=== PATIENT | male | born 1960 | race Caucasian/White ===

== ENCOUNTER 2023-12-05 06:00 | Emergency (ER) | payer OTHER ==
[2023-12-05] MEDS: SODIUM CHLORIDE 0.9% 1,000 ML IV STA (06:39)
[2023-12-05] MEDS: ONDANSETRON 4 MG/2 ML VIAL IVP STA (06:40)
[2023-12-05] MEDS: FAMOTIDINE 20 MG/2 ML VIAL IVP STA (06:41)
[2023-12-05 06:55] LABS: BASOPHILS % (AUTO) 0.8 %; EOSINOPHILS # (AUTO) 0.1 10^3/uL (0.0-0.7); EOSINOPHILS % (AUTO) 2.4 %; HCT - HEMATOCRIT 44.8 % (42.0-52.0); HGB - HEMOGLOBIN 14.6 g/dL (14.0-18.0); LYMPHOCYTES # (AUTO) 0.9 10^3/uL (1.5-3.5); LYMPHOCYTES % (AUTO) 17.3 %; MEAN CORPUSCULAR HGB CONC 32.6 g/dL (32.0-36.0); MEAN PLATELET VOLUME 9.9 fL (7.4-11.4); MONOCYTES # (AUTO) 0.4 10^3/uL (0.0-1.0); MONOCYTES % (AUTO) 7.5 %; NEUTROPHILS # (AUTO) 3.5 10^3/uL (1.5-6.6); NEUTROPHILS % (AUTO) 71.8 %; PLT - PLATELET COUNT 213 10^3/uL (130-450); RED BLOOD COUNT 4.87 10^6/uL (4.70-6.10); RED CELL DISTRIBUTION WIDTH 12.1 % (12.0-15.0); WHITE BLOOD COUNT 4.9 x10^3/uL (4.8-10.8)
[2023-12-05] MEDS: KETOROLAC 15 MG/ML VIAL IVP STA (07:01)
--- NOTE | 2023-12-05 07:08 | ED Physician Documentation ---
PD HPI ABD PAIN - Stated complaint Stated Complaint: ABD PX - Chief complaint Chief Complaint: Abd Pain - History obtained from History obtained from: Patient - History of Present Illness Timing - onset: Today (at about 3 am, abrupt onset of flank to left abd pain that has persisted.) Timing - details: Gradual onset, Still present Pain level max: 8 Pain level now: 8 Quality: Cramping, Pain Location: LLQ Radiation: Left flank Improved by: No: Laying still Worsened by: No: Moving, Breathing, Palpation Associated symptoms: Nausea. No: Fever, Diarrhea, Dysuria Similar symptoms before: Diagnosis (kidney stone about 20 years ago.) Recently seen: Not recently seen Review of Systems Constitutional: denies: Fever, Chills Cardiac: denies: Chest pain / pressure Respiratory: denies: Dyspnea GI: reports: Nausea. denies: Vomiting, Diarrhea : denies: Dysuria Skin: denies: Rash PD PAST MEDICAL HISTORY - Past Medical History Past Medical History: Yes Cardiovascular: Hypertension : Kidney stones - Past Surgical History Past Surgical History: Yes General: Other - Present Medications Home Medications: Ambulatory Orders Medication Instructions Recorded Confirmed Naproxen 500 mg PO TID #20 tab 12/05/23 Ondansetron Odt [Zofran] 4 mg TL Q6H PRN #10 tablet 12/05/23 Oxycodone HCl/Acetaminophen 1 each PO Q6H PRN #15 tablet 12/05/23 [Percocet 7.5-325 mg Tablet] Tamsulosin [Flomax] 0.4 mg PO DAILY #5 cap 12/05/23 - Allergies Allergies/Adverse Reactions: Allergies Allergy/AdvReac Type Severity Reaction Status Date / Time No Known Drug Allergies Allergy Verified 12/05/23 06:14 - Social History Does the pt smoke?: No Smoking Status: Never smoker Does the pt drink ETOH?: Yes ETOH Use: Wine Does the pt have substance abuse?: No - Immunizations Immunizations are current?: Yes - POLST Patient has POLST: No PD ED PE NORMAL - Vitals Vital signs reviewed: Yes - General General: Alert and oriented X 3, Well developed/nourished, Other (appears very uncomfortable. ) - Cardiac Cardiac: RRR, No murmur - Respiratory Respiratory: Clear bilaterally - Abdomen Abdomen: Normal bowel sounds, Soft, Non distended, Other (mildly tender only, LLQ without percussion tenderness nor guarding. ) - Back Back: Other (some left flank tender to percussion. ) - Derm Derm: Normal color, Warm and dry - Extremities Extremities: Normal ROM s pain - Neuro Neuro: Alert and oriented X 3, No motor deficit, Normal speech Results - Vitals Vitals: Vital Signs - 24 hr 12/05/23 12/05/23 12/05/23 06:10 07:32 08:30 Temperature 36.9 C Heart Rate 69 70 Respiratory 20 18 Rate Blood Pressure 147/89 H 134/72 H O2 Saturation 98 95 88 L If not protocol : Oxygen Flow, liters/minute 12/05/23 12/05/23 09:53 10:04 Temperature 36.3 C L Heart Rate 77 74 Respiratory 18 18 Rate Blood Pressure 136/82 H 140/86 H O2 Saturation 95 94 If not protocol 2 : Oxygen Flow, liters/minute Oxygen O2 Source Nasal cannula - Labs Labs: Laboratory Tests 12/05/23 12/05/23 12/05/23 06:51 06:51 06:55 WBC 4.9 RBC 4.87 Hgb 14.6 Hct 44.8 MCV 92.0 MCH 30.0 MCHC 32.6 RDW 12.1 Plt Count 213 MPV 9.9 Neut # (Auto) 3.5 Lymph # (Auto) 0.9 L [place] # (Auto) 0.4 Eos # (Auto) 0.1 Baso # (Auto) 0.0 Absolute Nucleated RBC 0.00 Nucleated RBC % 0.0 Sodium 140 Potassium 4.4 Chloride 108 Carbon Dioxide 25 Anion Gap 7.0 BUN 14 Creatinine 1.3 Estimated GFR (MDRD) 56 L Glucose 147 H Calcium 9.5 Total Bilirubin 0.5 AST 15 ALT 23 Alkaline Phosphatase 45 Total Protein 6.7 Albumin 4.3 Globulin 2.4 Albumin/Globulin Ratio 1.8 Lipase 14 Urine Color YELLOW Urine Clarity CLEAR Urine pH 5.0 Ur Specific Ray >=1.030 H Urine Protein NEGATIVE Urine Glucose (UA) NEGATIVE Urine Ketones NEGATIVE Urine Occult Blood SMALL H Urine Nitrite NEGATIVE Urine Bilirubin NEGATIVE Urine Urobilinogen 0.2 (NORMAL) Ur Leukocyte Esterase NEGATIVE Urine RBC 0-5 Urine WBC 0-3 Ur Squamous Epith Cells NONE SEEN Urine Bacteria Rare Urine Mucus Few Strands Ur Microscopic Review INDICATED Urine Culture Comments NOT INDICATED - Rads (name of study) abd/pelvic CT Relevant Findings:: Prelim report reviewed, EMP independent interpretation of test (5 mm stone proximal ureter left side. ) PD Medical Decision Making - ED course Complexity details: reviewed results, re-evaluated patient (had gotten Toradol and Zofran with less nausea but minimal change in pain. Gave Dilaudid 1 mg IV with considerable improvement. ), considered differential (Patient with abrupt onset left flank to lower abdomen pain overnight. Persisting pain. Associated with nausea. No chest pain. Remote history of kidney stone 20 years ago. No recent problems. Kidney stone highly likely. Can get CT scan to evaluate for diverticulitis, aortic problems, other.), d/w patient Departure - Departure Disposition: 01 Home, Self Care Clinical Impression: Left sided abdominal pain, Ureterolithiasis Condition: Stable Record reviewed to determine appropriate education?: Yes Instructions: ED Stone Renal W Colic Follow-Up: Shubham Barr MD [Provider Admit Priv/Credential] - Prescriptions: Tamsulosin [Flomax] 0.4 mg PO DAILY #5 cap Naproxen 500 mg PO TID #20 tab Oxycodone HCl/Acetaminophen [Percocet 7.5-325 mg Tablet] 1 each PO Q6H PRN #15 tablet PRN Reason: Pain Ondansetron Odt [Zofran] 4 mg TL Q6H PRN #10 tablet PRN Reason: Nausea / Vomiting Comments: You have a 5 to 6 mm stone in the left ureter which appears to be the cause of your pain. There is only mild swelling of the kidney on that side so it is not causing much back pressuring at this time. It likely was more earlier. The radiology report confirms this and did not show any other notable other abnormalities. They describe a small cyst in your liver which is fairly common. They noted some inflammation around the end of the esophagus that might be consistent with some reflux. If you do not currently take an acid reducing medicine then might consider Zantac or Pepcid type medicine daily. So the current pain is coming from us kidney stone trying to be passed. We ty pically will treat with a combination of some anti-inflammatories and antispasmodic for the ureter (naproxen and tamsulosin). To that add Tylenol 500 to 650 mg every 4-6 hours if needed or oxycodone/acetaminophen if needed for worse pain. I also prescribed ondansetron if needed for nausea. Adequate hydration. Follow-up with urology if this has not resolved over the next several days. Return to the ER if worse symptoms despite the medication. I sent your prescriptions to [facility] in [place]. I am prescribing a short course of narcotic pain medication for you. These are potentially dangerous and addictive medications that should be used carefully. These medications may constipate you. Take an [id number] stool softener such as docusate twice daily with plenty of water while taking these medications. If you go 24 hours without a bowel movement, take [id number] MiraLAX, per package instructions. Do not drink or drive while taking these medications. If you received narcotic or sedating medications while in the emergency department do not drive for 24 hours. Store this medication in a safe, secure place and out of reach of children. It is a violation of federal law to give or sell this medication to another person or to use in a manner other than prescribed. The ED will not refill narcotic prescriptions, including prescriptions lost or stolen. You can dispose of unwanted medications at the [facility]'s office or at several pharmacies such as [facility] Forms: PCP List, Activity restrictions Discharge Date/Time: 12/05/23 10:09
[2023-12-05 07:11] LABS: BILIRUBIN,URINE NEGATIVE (NEGATIVE); GLUCOSE, URINE (UA) NEGATIVE (NEGATIVE); KETONES,URINE (UA) NEGATIVE (NEGATIVE); LEUKOCYTE ESTERASE, URINE NEGATIVE (NEGATIVE); NITRITE,URINE NEGATIVE (NEGATIVE); OCCULT BLOOD,URINE SMALL (NEGATIVE); PROTEIN,URINE NEGATIVE (NEGATIVE); UROBILINOGEN,URINE 0.2 (NORMAL) E.U./dL (NORMAL)
[2023-12-05 07:12] LABS: CLARITY,URINE CLEAR (CLEAR)
[2023-12-05 07:23] LABS: BACTERIA,URINE Rare /HPF (None Seen); MUCUS,URINE Few Strands; RBC,URINE 0-5 /HPF (0-5); SQUAMOUS EPITHELIAL CELL,UR NONE SEEN (<= Few); WBC,URINE 0-3 /HPF (0-3)
[2023-12-05 07:24] LABS: ALBUMIN 4.3 g/dL (3.2-5.5); ALBUMIN/GLOBULIN RATIO 1.8 (1.0-2.2); BILIRUBIN,TOTAL 0.5 mg/dL (0.2-1.0); CALCIUM 9.5 mg/dL (8.5-10.3); CREATININE 1.3 mg/dL (0.6-1.3); POTASSIUM 4.4 mmol/L (3.5-4.5); TOTAL PROTEIN 6.7 g/dL (6.4-8.9)
[2023-12-05] MEDS: HYDROmorphone 1 MG/ML CARPUJECT IVP STA (07:30)
[2023-12-05] MEDS ORDERED: iohexoL-300 100 ML VIAL ONE (07:51)
--- NOTE | 2023-12-05 08:49 | CT Report ---
PROCEDURE: Abdomen/Pelvis W INDICATIONS: left abd/flank pain onset overnight CONTRAST: 100ml omni 300 TECHNIQUE: After the administration of intravenous contrast, a CT scan of the abdomen and pelvis was performed. Images were recorded and evaluated at appropriate window settings. Reformats: coronal and sagittal. F or radiation dose reduction, the following was used: automated exposure control, adjustment of mA and /or kV according to patient size. COMPARISON: None. FINDINGS: Image quality: Diagnostic. Lower chest: Right lower lobe infiltrate/atelectasis. Mild concentric esophageal wall thickening. Liver: No solid mass. Moderate hepatic steatosis. There is a 1.2 cm indeterminate hypodense subcapsul ar nodule in the posterior segment of the right hepatic lobe, most likely a cyst. Gallbladder and biliary tree: Normal gallbladder. No biliary dilation. Spleen: No splenomegaly. Pancreas: No pancreatic ductal dilation. Adrenals: No adrenal nodule. Kidneys and ureters: There is a 6 mm stone proximal left ureter just beyond the ureteropelvic junctio n. There is mild left hydronephrosis and perinephric stranding. There is a large stone in the right r enal pelvis measuring 17 x 18 mm. No right hydronephrosis. No renal cystic lesion which requires foll ow up. No solid mass. Stomach, bowel and peritoneum: No bowel distension. No pathologic free fluid. Lymph nodes: No central or retroperitoneal adenopathy. Vessels: No infrarenal aortic aneurysm. PELVIS Reproductive organs: Prostate is enlarged. Bladder: No abnormal wall thickening, accounting for underdistention. Pelvic lymph nodes: No pelvic adenopathy by size criteria. Bones: No aggressive osseous abnormality. Other: Small fat-containing right inguinal hernia. IMPRESSION: 1. A 6 mm obstructive stone in the proximal left ureter causing mild hydronephrosis. 2. Enlarged nonobstructive calculus in the right kidney. No right hydronephrosis. 3. Hepatic steatosis. 4. A 1.2 cm intermediate hepatic hypodensity in the right hepatic lobe. Statistically, it is most lik gregory a cyst. 5. Mild concentric thickening of the distal esophagus, probably secondary to gastroesophageal reflux or esophagitis. 6. Enlarged prostate. Reviewed by: Dev Matamoros MD on 12/05/2023 8:48 AM PST Approved by: Dev Matamoros MD on 12/05/2023 8:48 AM PST Station ID: [id number]
[2023-12-05] MEDS: iohexoL-300 100 ML VIAL IVP ONE (08:56)
[2023-12-05] MEDS: TAMSULOSIN 0.4 MG CAPSULE PO STA (09:25)
[2023-12-05] MEDS: HYDROmorphone 0.5 MG/0.5 ML SYRINGE IVP STA (09:25)
[2023-12-05] MEDS: LIDOCAINE-MPF 2% 7 ML in SODIUM CHLORIDE 0.9% 50 ML IV STA (09:35)
[2023-12-05 10:09] VITALS: BP 140/86; O2SAT 94
== END 2023-12-05 10:09 | disposition home or self-care (01) ==
LOC: ED 06:00
DX: N13.2 Hydronephrosis with renal and ureteral calculous obstruction (principal); I10 Essential (primary) hypertension
CPT/HCPCS: 36415; 74177; 80053; 81001; 83690; 85025; 96365; 96375; 96376; 99284; 99285; A9270; J1170; J7040; Q9967; 81003; 87086

== ENCOUNTER 2024-01-12 10:54 | Day surgery (SDC) | payer OTHER ==
[2024-01-12] MEDS ORDERED: ceFAZolin 2 GM VIAL ONE (10:58)
[2024-01-12] MEDS ORDERED: LIDOCAINE 2% URO-JET 5 ML SYRINGE UR ONE (11:04)
[2024-01-12] MEDS ORDERED: iohexoL-240 10 ML VIAL IVP ONE (11:21)
[2024-01-12] MEDS: LACTATED RINGERS 1,000 ML IV ONE ×2 (11:21→12:15)
[2024-01-12] MEDS ORDERED: MIDAZOLAM 2 MG/2 ML VIAL ONE (11:31)
[2024-01-12] MEDS ORDERED: fentaNYL 100 MCG/2 ML VIAL ONE (11:32)
--- NOTE | 2024-01-12 11:35 | ANESTHESIA ---
Pre-Anesthesia VS, & Labs - Diagnosis LEFT URETERAL STONE - Procedure LEFT LITHOTRIPSY AND CYSTO Vital Signs: Temp Pulse Resp BP Pulse Ox O2 Flow Rate 36.6 C 70 13 125/83 H 98 01/12/24 11:22 01/12/24 11:22 01/12/24 11:22 01/12/24 11:22 01/12/24 11:22 Height: 5 ft 9 in Weight (kg): 97.6 kg Body Mass Index: 31.7 BMI Classification: Obese - NPO Last Fluid Intake: 1000 Last Food Intake: >8HR Home Medications and Allergies Home Medications: Ambulatory Orders No Known Home Medications 01/07/24 No Known Home Medications 01/07/24 Allergies/Adverse Reactions: Allergies Allergy/AdvReac Type Severity Reaction Status Date / Time No Known Drug Allergies Allergy Verified 01/12/24 11:27 Anes History & Medical History - Anesthetic History Anesthesia Complications: reports: No previous complications Family history of Anesthesia Complications: Denies - Medical History Cardiovascular: reports: None Pulmonary: reports: None Gastrointestinal: reports: None Urinary: reports: Kidney stones Musculoskeletal: reports: None Endocrine/Autoimmune: reports: None Skin: reports: None Smoking Status: Never smoker Psychosocial: reports: No issues indicated - Surgical History General: reports: Colonoscopy, Other Eyes Ears Nose Throat (EENT): reports: Cataracts Urologic: reports: Ureterolithotomy (stones) Results - EKG Results EKG Comparison: Reviewed EKG Exam General: Alert Dental: WNL, Partials Upper (REPORTS NO LOOSE TEETH) Mouth Openin Fingerbreadth Mallampati classification: II Thyromental Distance: 4-6 cm Plan Anesthesia Type: General Consent for Procedure(s) Verified and Reviewed: Yes Code Status: Attempt Resuscitation ASA classification: 2-Mild systemic disease Is this case an emergency?: No
[2024-01-12] MEDS ORDERED: ONDANSETRON 4 MG/2 ML VIAL IVP PRN (11:37)
[2024-01-12] MEDS ORDERED: MORPHINE 2 MG/ML CARPUJECT IVP PRN (11:37)
[2024-01-12] MEDS ORDERED: HYDROmorphone 0.5 MG/0.5 ML SYRINGE IVP PRN (11:37)
[2024-01-12] MEDS ORDERED: ePHEDrine 50 MG/ML VIAL IVP PRN (11:37)
[2024-01-12] MEDS ORDERED: METOCLOPRAMIDE 10 MG/2 ML VIAL IVP PRN (11:37)
[2024-01-12] MEDS ORDERED: NALOXONE 0.4 MG/ML VIAL IVP PRN (11:37)
[2024-01-12] MEDS ORDERED: fentaNYL 100 MCG/2 ML VIAL IVP PRN (11:37)
[2024-01-12] MEDS ORDERED: ATROPINE ABBOJECT 1 MG/10 ML SYRINGE IVP PRN (11:37)
[2024-01-12] MEDS ORDERED: DEXAMETHASONE 4 MG/ML VIAL ONE (11:56)
[2024-01-12] MEDS ORDERED: ONDANSETRON 4 MG/2 ML VIAL ONE (11:56)
[2024-01-12] MEDS: LIDOCAINE 2% URO-JET 5 ML SYRINGE UR ONE (12:00)
[2024-01-12] MEDS: iohexoL-240 10 ML VIAL IVP ONE (12:00)
[2024-01-12] MEDS ORDERED: LACTATED RINGERS 1,000 ML IV SCH (12:00)
[2024-01-12] MEDS ORDERED: KETOROLAC 30 MG/ML VIAL ONE (12:02)
--- NOTE | 2024-01-12 12:21 | Discharge Plan ---
Discharge Plan Problem Reviewed?: Yes Disposition: Home, Self Care Condition: Good Prescriptions: Docusate Sodium 100Mg Capsule [Colace 100Mg Capsule] 100 mg PO DAILY #7 cap HYDROcod/ACETAM 5/325 [[place]hu[place] 5/325] 1 tab PO Q4H PRN #6 tablet PRN Reason: Pain Diet: Regular Activity Restrictions: No Restrictions Shower Restrictions: No Driving Restrictions: Yes (no driving when taking pain medications) Instruction Topics: Stents Ureteral Additional Instructions or Follow Up instructions: Please remove ureteral stent as instructed on January 14 in the morning. You will be contacted for follow-up with Dr. Barr in a few weeks to discuss your other kidney stone No Smoking: If you smoke, Please STOP! Call for help. Follow-up with: Shubham Barr MD [Provider Admit Priv/Credential] -
--- NOTE | 2024-01-12 12:24 | OPERATIVE REPORT ---
Operative Report - General Procedure Date: 01/12/24 Planned Procedure: Cystoscopy, left ureteroscopy, laser lithotripsy, stent Pre-Op Diagnosis: left ureteral stone, right renal stone Procedure Performed: Cystoscopy, left diagnostic ureteroscopy, stent Post Op Diagnosis: right renal stone - Procedure Note Primary Surgeon: Momo Anesthesia Provider: CONNIE Bunn Anesthesia Technique: General LMA Findings: No stone seen on the left side. Large radiopaque upper pole right stone Complications: No left ureteral stone - Other Other Information/Narrative: After informed consent was obtained the patient was brought to the OR and laid in the supine position. The patient was anesthetized per anesthesia protocols and prepped and draped in usual sterile fashion in the dorsolithotomy position. A formal timeout was performed reconfirming the patient, procedure and laterality. A 22 Australian cystoscope was advanced easily into urinary bladder. Bladder inspected and full and there were no masses, lesions or other concerns. [employer] imaging showed no radiopacities on the left side. On the right side there was a 15 mm upper pole radiopaque stone consistent with prior imaging. A sensor wire was placed easily up in the left kidney. A flexible ureteroscope was advanced over the wire up into the kidney. The kidney was inspected and full and there were no stones or other concerns. The ureter was then cleared under direct visualization and again no stones were seen. There were some slight areas of narrowing throughout the ureter but there were no stones seen. A sensor wire was replaced back up in the kidney and then on the left side a 6 [place] 26 cm stent was placed with good curling noted in the kidney and good curling noted in the bladder. The bladder was emptied Uro-Jet was placed. There was a string left on the stent and this was taped to his penis. The plan will be for the stent to remain in place for 3 days. He will follow-up in a few weeks time to discuss his right-sided kidney stone. Patient tolerated procedure well was brought to PACU without further incident.
[2024-01-12 12:45] VITALS: O2SAT 96
--- NOTE | 2024-01-12 12:55 | ANESTHESIA POST OP EVALUATION ---
Anesthesia Post Eval - Post Anesthesia Eval Vitals: Last Vital Signs Temp 36.6 C 01/12/24 12:45 Pulse 68 01/12/24 12:45 Resp 14 01/12/24 12:45 BP 109/80 01/12/24 12:45 Pulse Ox 96 01/12/24 12:45 O2 Flow Rate CV Function Including HR & BP: Stable Pain Control: Satisfactory Nausea & Vomiting: Negative Mental Status: Baseline Respiratory Status: Airway Patent Hydration Status: Satisfactory Anesthesia Complications: None
[2024-01-12 13:06] VITALS: BP 114/82
[2024-01-12] MEDS ORDERED: HYDROcod/ACETAM 5/325 MG TABLET ONE (13:08)
[2024-01-12] MEDS: HYDROcod/ACETAM 5/325 MG TABLET PO PRN (13:10)
--- NOTE | 2024-01-13 08:35 | XRAY Report ---
PROCEDURE: OR C-Arm Procedure INDICATIONS: CYSTO, LEFT FLEX, URETEROSCOPY, LASER, STENT PLACE FLUORO TIME: 0.1 min TECHNIQUE: 3 C-arm fluoroscopy images submitted. COMPARISON: CT abdomen and pelvis, 12/05/2015. FINDINGS: 3 fluoroscopy images demonstrate cannulization of the left ureter and placement of left ure teral stent. IMPRESSION: Fluoroscopy support for cystoscopy, left ureteral cannulization, ureteroscopy, laser treatment and st ent placement. Reviewed by: Dev Matamoros MD on 01/13/2024 8:34 AM PDT Approved by: Dev Matamoros MD on 01/13/2024 8:34 AM PDT Station ID: [id number]
== END 2024-01-12 10:55 | disposition home or self-care (01) ==
LOC: SDS 10:54
PROVIDERS: ATTEND Urology
DX: N20.0 Calculus of kidney (principal); E66.9 Obesity, unspecified; Z68.31 Body mass index [BMI] 31.0-31.9, adult
CPT/HCPCS: 52356; A9270; C1758; C2617; J7120; Q9966

== ENCOUNTER 2024-03-22 06:17 | Day surgery (SDC) | payer OTHER ==
[2024-03-22] MEDS ORDERED: ceFAZolin 2 GM VIAL ONE (06:19)
[2024-03-22] MEDS: LACTATED RINGERS 1,000 ML IV ONE ×2 (06:49→08:30)
[2024-03-22] MEDS ORDERED: ONDANSETRON 4 MG/2 ML VIAL IVP PRN ×2 (06:52→08:48)
[2024-03-22] MEDS ORDERED: METOCLOPRAMIDE 10 MG/2 ML VIAL IVP PRN (06:52)
[2024-03-22] MEDS ORDERED: MORPHINE 2 MG/ML CARPUJECT IVP PRN (06:52)
[2024-03-22] MEDS ORDERED: ATROPINE ABBOJECT 1 MG/10 ML SYRINGE IVP PRN (06:52)
[2024-03-22] MEDS ORDERED: NALOXONE 0.4 MG/ML VIAL IVP PRN (06:52)
[2024-03-22] MEDS ORDERED: fentaNYL 100 MCG/2 ML VIAL IVP PRN (06:52)
[2024-03-22] MEDS ORDERED: ePHEDrine 50 MG/ML VIAL IVP PRN (06:52)
--- NOTE | 2024-03-22 06:52 | ANESTHESIA ---
Pre-Anesthesia VS, & Labs - Diagnosis nephrolithisis - Procedure ESWL @R Vital Signs: Temp Pulse Resp BP Pulse Ox O2 Flow Rate 36.4 C L 79 16 115/85 H 94 03/22/24 06:37 03/22/24 06:37 03/22/24 06:37 03/22/24 06:37 03/22/24 06:37 Height: 5 ft 9 in Weight (kg): 98.3 kg Body Mass Index: 32.0 BMI Classification: Obese - NPO >8 hours - Lab Results Lab results reviewed: Yes Home Medications and Allergies Home Medications: Ambulatory Orders No Known Home Medications 03/10/24 No Known Home Medications 03/10/24 Allergies/Adverse Reactions: Allergies Allergy/AdvReac Type Severity Reaction Status Date / Time No Known Drug Allergies Allergy Verified 01/12/24 11:27 Anes History & Medical History - Anesthetic History Anesthesia Complications: reports: No previous complications Family history of Anesthesia Complications: Denies Family history of Malignant Hyperthermia: Denies - Medical History Cardiovascular: reports: None Pulmonary: reports: None Gastrointestinal: reports: None Urinary: reports: Kidney stones Musculoskeletal: reports: None Endocrine/Autoimmune: reports: None Skin: reports: None Smoking Status: Never smoker - Surgical History General: reports: Colonoscopy, Other Eyes Ears Nose Throat (EENT): reports: Cataracts Urologic: reports: Ureterolithotomy (stones) Exam General: Alert, Oriented x3, Cooperative Dental: Partials Upper Mouth Openin Fingerbreadth Neck Mobility: Normal Mallampati classification: II Thyromental Distance: 4-6 cm Respiratory: Lungs clear, Normal breath sounds, No respiratory distress Cardiovascular: Regular rate Neurological: Normal speech Mental/Cognitive Status: Alert/Oriented X3, Normal for patient Cognitive Status: Within normal limits Plan Anesthesia Type: General Consent for Procedure(s) Verified and Reviewed: Yes Code Status: Attempt Resuscitation ASA classification: 2-Mild systemic disease Is this case an emergency?: No
[2024-03-22] MEDS ORDERED: LACTATED RINGERS 1,000 ML IV SCH (07:00)
[2024-03-22] MEDS ORDERED: MIDAZOLAM 2 MG/2 ML VIAL ONE (07:05)
[2024-03-22] MEDS ORDERED: fentaNYL 100 MCG/2 ML VIAL ONE (07:06)
[2024-03-22] MEDS ORDERED: LIDOCAINE-PF 2% 10 ML AMP SUBQ ONE (07:06)
[2024-03-22] MEDS ORDERED: PROPOFOL 200 MG/20 ML VIAL IVP ONE (07:06)
[2024-03-22] MEDS ORDERED: ONDANSETRON 4 MG/2 ML VIAL ONE (07:42)
[2024-03-22] MEDS ORDERED: DEXAMETHASONE 4 MG/ML VIAL ONE (07:42)
--- NOTE | 2024-03-22 08:56 | Discharge Plan ---
Discharge Plan Problem Reviewed?: Yes Disposition: Home, Self Care Condition: Good Prescriptions: Docusate Sodium 100Mg Capsule [Colace 100Mg Capsule] 100 mg PO DAILY #7 cap oxyCODONE [Roxicodone] 5 mg PO Q4H PRN #10 tablet PRN Reason: Pain Diet: Regular Activity Restrictions: No Restrictions Shower Restrictions: No Driving Restrictions: No Instruction Topics: Lithotripsy Shock Wave Additional Instructions or Follow Up instructions: You have a follow-up on April [address] Barr at 1 PM. Please go to [facility] imaging center earlier that morning or a few days beforehand for an abdominal x-ray. This has been ordered for you No Smoking: If you smoke, Please STOP! Call for help.
--- NOTE | 2024-03-22 09:00 | OPERATIVE REPORT ---
Operative Report - General Procedure Date: 03/22/24 Planned Procedure: Right Extracorporeal shock wave lithotripsy Pre-Op Diagnosis: Right kidney stone Procedure Performed: Right Extracorporeal shock wave lithotripsy Post Op Diagnosis: same - Procedure Note Primary Surgeon: Momo Anesthesia Provider: CONNIE Bunn Anesthesia Technique: General LMA Pathology: none Indications: Right upper pole 16mm stone Findings: Right upper pole 16mm stone with moderate dissolution Complications: none - Other Other Information/Narrative: After informed consent was obtained the patient was brought to the OR and laid in the supine position. The patient was anesthetized per anesthesia protocols and then prepped and draped in usual sterile fashion. A formal timeout was performed reconfirming the patient, procedure and laterality. An extracorporeal shockwave lithotripsy Dornier lithotripter device was placed with the pad against the patient's right flank. Gas Desulfurizer imaging was performed to isolate and identify the stone. He had a 16 mm right sided upper pole radiopaque stone. The lithotripter was then started at rate of 1 Hz. A total of 2500 shocks were performed. Periodic Spot imaging was used to reconfirm positioning and to monitor this stone. By the end of the case the stone had moderate dissolution. We could clearly see that it had widened and lightened quite significantly. This concluded the procedure and the patient was reversed from anesthesia and brought to the PACU without further incident. He will follow-up in 4 weeks time with an x-ray.
[2024-03-22] MEDS ORDERED: HYDROmorphone 1 MG/ML CARPUJECT ONE (09:09)
[2024-03-22] MEDS: HYDROmorphone 0.5 MG/0.5 ML SYRINGE IVP PRN (09:14)
[2024-03-22] MEDS ORDERED: HYDROcod/ACETAM 5/325 MG TABLET ONE (09:54)
[2024-03-22] MEDS: HYDROcod/ACETAM 5/325 MG TABLET PO PRN (09:55)
--- NOTE | 2024-03-22 10:16 | ANESTHESIA POST OP EVALUATION ---
Anesthesia Post Eval - Post Anesthesia Eval Vitals: Last Vital Signs Temp 36.6 C 03/22/24 09:50 Pulse 75 03/22/24 09:50 Resp 16 03/22/24 09:50 BP 136/67 H 03/22/24 09:50 Pulse Ox 98 03/22/24 09:50 O2 Flow Rate CV Function Including HR & BP: Stable Pain Control: Satisfactory Nausea & Vomiting: Negative Mental Status: Baseline Respiratory Status: Airway Patent Hydration Status: Satisfactory Anesthesia Complications: None
[2024-03-22 10:25] VITALS: BP 118/60; O2SAT 99
== END 2024-03-22 06:18 | disposition home or self-care (01) ==
LOC: SDS 06:17
PROVIDERS: ATTEND Urology
DX: N20.0 Calculus of kidney (principal); E66.9 Obesity, unspecified; Z68.32 Body mass index [BMI] 32.0-32.9, adult
CPT/HCPCS: 50590; A9270; J1170; J7120

== ENCOUNTER 2024-03-26 00:50 | Day surgery (SDC) | payer OTHER ==
--- NOTE | 2024-03-26 01:37 | ED Physician Documentation ---
History of Present Illness - Stated complaint Stated Complaint: ABD PX - Chief complaint Chief Complaint: Abd Pain - History obtained from History obtained from: Patient - Additonal information Additional information: 63yM presents s/p lithotripsy for kidney stones on friday (5 days ago) with R back pain that is sharp, severe, c/w prior kidney stones. also with nausea. denies fever Review of Systems Constitutional: denies: Fever, Chills Cardiac: denies: Chest pain / pressure Respiratory: denies: Dyspnea GI: reports: Nausea. denies: Abdominal Pain, Vomiting : denies: Dysuria, Frequency Musculoskeletal: reports: Back pain PD PAST MEDICAL HISTORY - Past Medical History Cardiovascular: None Respiratory: None Endocrine/Autoimmune: None GI: None : Kidney stones HEENT: Chronic vision loss Psych: Depression Musculoskeletal: None Derm: None - Past Surgical History Past Surgical History: Yes General: Colonoscopy, Other HEENT: Cataracts - Present Medications Home Medications: Ambulatory Orders Medication Instructions Recorded Confirmed Docusate Sodium 100Mg Capsule 100 mg PO DAILY #7 cap 03/22/24 [Colace 100Mg Capsule] oxyCODONE [Roxicodone] 5 mg PO Q4H PRN #10 tablet 03/22/24 - Allergies Allergies/Adverse Reactions: Allergies Allergy/AdvReac Type Severity Reaction Status Date / Time No Known Drug Allergies Allergy Verified 03/26/24 01:20 - Social History Does the pt smoke?: No Smoking Status: Never smoker Does the pt drink ETOH?: Yes Does the pt have substance abuse?: No - Immunizations Immunizations are current?: Yes - POLST Patient has POLST: No PD ED PE NORMAL - Vitals Vital signs reviewed: Yes - General General: Alert and oriented X 3, Well developed/nourished, Other (uncomfortable appearing) - HEENT HEENT: Atraumatic, PERRL, EOMI - Neck Neck: Supple, no meningeal sign - Cardiac Cardiac: RRR - Respiratory Respiratory: No respiratory distress, Clear bilaterally - Abdomen Abdomen: Non tender, Non distended - Back Back: Other (R CVA ttp) Results - Vitals Vitals: Vital Signs - 24 hr 03/26/24 03/26/24 01:20 02:54 Temperature 35.9 C L Heart Rate 55 L 88 Respiratory 16 18 Rate Blood Pressure 164/76 H 116/72 O2 Saturation 97 93 Oxygen O2 Source Room air - Labs Labs: Laboratory Tests 03/26/24 03/26/24 03/26/24 01:30 01:30 03:00 WBC 7.3 RBC 4.96 Hgb 14.6 Hct 44.8 MCV 90.3 MCH 29.4 MCHC 32.6 RDW 12.4 Plt Count 256 MPV 10.4 Neut # (Auto) 5.5 Lymph # (Auto) 1.0 L [place] # (Auto) 0.7 Eos # (Auto) 0.1 Baso # (Auto) 0.0 Absolute Nucleated RBC 0.00 Nucleated RBC % 0.0 Sodium 138 Potassium 3.8 Chloride 103 Carbon Dioxide 31 Anion Gap 4.0 L BUN 14 Creatinine 1.4 H Estimated GFR (MDRD) 51 L Glucose 170 H Calcium 9.7 Total Bilirubin 0.8 AST 13 ALT 17 Alkaline Phosphatase 45 Total Protein 6.6 Albumin 4.5 Globulin 2.1 Albumin/Globulin Ratio 2.1 Lipase 11 Urine Color YELLOW Urine Clarity CLEAR Urine pH 5.5 Ur Specific [place] >=1.030 H Urine Protein NEGATIVE Urine Glucose (UA) NEGATIVE Urine Ketones NEGATIVE Urine Occult Blood LARGE H Urine Nitrite NEGATIVE Urine Bilirubin NEGATIVE Urine Urobilinogen 0.2 (NORMAL) Ur Leukocyte Esterase TRACE H Urine RBC 6-10 H Urine WBC 0-3 Ur Squamous Epith Cells RARE Squamous Urine Bacteria Rare Ur Microscopic Review INDICATED Urine Culture Comments INDICATED PD Medical Decision Making - ED course ED course: 63-year-old man presents with right flank pain status post lithotripsy 4 days prior, likely passing a kidney stone at this time. Symptomatic care provided in the form of IV Dilaudid, Zofran, fluids and we will check some lab work and a CT abdomen pelvis. Cre 1.4, up from 1.3 12/05/23. Fluids provided. Patient with multiple obstructing stones on CT. D/w Dr. Barr who will place orders and perform same day procedure. Patient is boarding in ed since no med surg beds. Departure - Departure Disposition: ED Transfer to [facility] Clinical Impression: Kidney stones, Nausea, Back pain Condition: Stable Instructions: Lithotripsy Shock Wave, Kidney Stones Comments: You were seen in the emergency department for medical evaluation. You are passing kidney stones. Please follow-up with your urologist and return to the emergency department if you have any new or worsening symptoms or other concerns. Forms: PCP List
[2024-03-26] MEDS: HYDROmorphone 1 MG/ML CARPUJECT IVP STA (01:39)
[2024-03-26] MEDS: ONDANSETRON 4 MG/2 ML VIAL IVP STA (01:39)
[2024-03-26] MEDS: SODIUM CHLORIDE 0.9% 1,000 ML IV STA (01:39)
[2024-03-26 01:47] LABS: BASOPHILS % (AUTO) 0.4 %; EOSINOPHILS # (AUTO) 0.1 10^3/uL (0.0-0.7); EOSINOPHILS % (AUTO) 1.7 %; HCT - HEMATOCRIT 44.8 % (42.0-52.0); HGB - HEMOGLOBIN 14.6 g/dL (14.0-18.0); LYMPHOCYTES % (AUTO) 13.1 %; MEAN CORPUSCULAR HEMOGLOBIN 29.4 pg (27.0-31.0); MEAN CORPUSCULAR HGB CONC 32.6 g/dL (32.0-36.0); MEAN CORPUSCULAR VOLUME 90.3 fL (80.0-94.0); MEAN PLATELET VOLUME 10.4 fL (7.4-11.4); MONOCYTES # (AUTO) 0.7 10^3/uL (0.0-1.0); MONOCYTES % (AUTO) 9.4 %; NEUTROPHILS # (AUTO) 5.5 10^3/uL (1.5-6.6); NEUTROPHILS % (AUTO) 75.1 %; PLT - PLATELET COUNT 256 10^3/uL (130-450); RED BLOOD COUNT 4.96 10^6/uL (4.70-6.10); RED CELL DISTRIBUTION WIDTH 12.4 % (12.0-15.0); WHITE BLOOD COUNT 7.3 x10^3/uL (4.8-10.8)
[2024-03-26 01:58] LABS: ALBUMIN 4.5 g/dL (3.2-5.5); ALBUMIN/GLOBULIN RATIO 2.1 (1.0-2.2); BILIRUBIN,TOTAL 0.8 mg/dL (0.2-1.0); CALCIUM 9.7 mg/dL (8.5-10.3); CREATININE 1.4 mg/dL (0.6-1.3); POTASSIUM 3.8 mmol/L (3.5-4.5); TOTAL PROTEIN 6.6 g/dL (6.4-8.9)
[2024-03-26] MEDS: KETOROLAC 15 MG/ML VIAL IVP STA (02:32)
[2024-03-26 03:58] LABS: BILIRUBIN,URINE NEGATIVE (NEGATIVE); CLARITY,URINE CLEAR (CLEAR); GLUCOSE, URINE (UA) NEGATIVE (NEGATIVE); KETONES,URINE (UA) NEGATIVE (NEGATIVE); LEUKOCYTE ESTERASE, URINE TRACE (NEGATIVE); NITRITE,URINE NEGATIVE (NEGATIVE); OCCULT BLOOD,URINE LARGE (NEGATIVE); PH,URINE 5.5 PH (5.0-7.5); PROTEIN,URINE NEGATIVE (NEGATIVE); UROBILINOGEN,URINE 0.2 (NORMAL) E.U./dL (NORMAL)
[2024-03-26 04:03] LABS: BACTERIA,URINE Rare /HPF (None Seen); SQUAMOUS EPITHELIAL CELL,UR RARE Squamous (<= Few); WBC,URINE 0-3 /HPF (0-3)
--- NOTE | 2024-03-26 08:41 | CT Report ---
PROCEDURE: Abdomen/Pelvis WO INDICATIONS: kidney stones TECHNIQUE: A CT scan of the abdomen and pelvis was performed without the use of intravenous contrast. Images we re recorded and evaluated at appropriate window settings. Reformats: coronal and sagittal. For radiat ion dose reduction, the following was used: automated exposure control, adjustment of mA and/or kV ac cording to patient size. COMPARISON: None. FINDINGS: Image quality: Diagnostic. Lower chest: Pleural parenchymal band in the right lower lobe. Cardiomegaly. Small hiatal hernia appe ars Liver: No contour-deforming mass. Gallbladder: No radiopaque stones or wall thickening. Biliary tree: No intrahepatic or extrahepatic dilation, accounting for age. Spleen: No splenomegaly. Pancreas: No pancreatic ductal dilation. Adrenals: No adrenal nodule. Kidneys and ureters: A pair of obstructing stones in the proximal right ureter measuring 4 mm and 7 m m. Additional large burden of nonobstructing right-sided nephrolithiasis, with multiple clusters of s tones measuring less than 1 cm ([id number] Hounsfield unit). Moderate right-sided hydronephrosis, leonor l edema and perinephric fat stranding. Stomach, bowel and peritoneum: No gastric or small bowel dilation. No abnormal wall thickening. No pa thologic free fluid. Diverticulosis without evidence of diverticulitis. Normal appendix. Lymph nodes: No central or retroperitoneal adenopathy. Prominent retroperitoneal lymph nodes, likely reactive. Vessels: No infrarenal aortic aneurysm. Reproductive organs: Unremarkable. Bladder: Bladder wall thickness is normal, accounting for underdistention. No calcified bladder stone s. Pelvic lymph nodes: No adenopathy by size criteria. Bones: No aggressive osseous abnormality. Degenerative changes of the spine. Other: Trace fat within the inguinal canals. IMPRESSION: A pair of obstructing stones in the proximal right ureter measuring 4 mm and 7 mm. This results in mo derate hydronephrosis, renal edema and perinephric fat stranding. Large burden of right-sided nephrolithiasis. Other chronic findings as above. Findings are concordant with preliminary interpretation provided by [facility]. Reviewed by: Edward Owens MD on 03/26/2024 8:39 AM PDT Approved by: Edward Owens MD on 03/26/2024 8:39 AM PDT Station ID: [id number]
--- NOTE | 2024-03-26 08:59 | CONSULTATION NOTE ---
Referring Provider Name of Referring Provider:: ED Physicians Consult Date: 03/26/24 Chief Complaint - Chief Complaint Chief Complaint: right flank pain History of Present Illness - Admitted From Admitted From:: ER - History Obtained From Records Reviewed: ER History obtained from: Patient and EMR Exam Limitations: none - History of Present Illness HPI Comment/Other: Malik is a 63-year-old male well-known to me who has had multiple kidney stone issues. He had a left ureteroscopy for ureteral stone in December 2023. He also had a large 16mm right upper pole renal stone which she had a extracorporeal shockwave lithotripsy for this Friday. He did well after the procedure and passed a lot of dust until late last night where he developed flank pain on the right side. He then presented to the ER with significant pain. A CT scan was performed which showed a 7 mm obstructing right proximal ureteral stone along with a large burden of stones up in his kidney which have been broken up from his prior shockwave. Urology was consulted He is hemodynamically stable, creatinine slightly elevated 1.4 but otherwise benign lab work History - Past Medical History Cardiovascular: reports: None Respiratory: reports: None Endocrine/Autoimmune: reports: None GI: reports: None : reports: Kidney stones HEENT: reports: Chronic vision loss Psych: reports: Depression Musculoskeletal: reports: None Derm: reports: None MRSA Hx?: No - Past Surgical History General: reports: Colonoscopy, Other HEENT: reports: Cataracts - POLST Patient has POLST: No Meds/Allgy - Home Medications Home Medications: Ambulatory Orders Medication Instructions Recorded Confirmed Docusate Sodium 100Mg Capsule 100 mg PO DAILY #7 cap 03/22/24 03/26/24 [Colace 100Mg Capsule] oxyCODONE [Roxicodone] 5 mg PO Q4H PRN #10 tablet 03/22/24 03/26/24 - Allergies Allergies/Adverse Reactions: Allergies Allergy/AdvReac Type Severity Reaction Status Date / Time No Known Drug Allergies Allergy Verified 03/26/24 01:20 Exam - Vital Signs Reviewed Vital Signs: Yes Vital Signs: Vital Signs x48h Temp Pulse Resp BP Pulse Ox 03/26/24 08:10 68 123/60 96 03/26/24 06:53 36.3 C L 59 L 18 108/72 94 03/26/24 02:54 88 18 116/72 93 03/26/24 01:20 35.9 C L 55 L 16 164/76 H 97 - Physical Exam General Appearance: positive: No acute distress Respiratory: positive: Breath sounds nml Cardiovascular: positive: Regular rate & rhythm Conclusion and Plan - Lab Results Laboratory Results 03/26/24 03:00: Urine Color YELLOW, Urine Clarity CLEAR, Urine pH 5.5, Ur Specific [place] >=1.030 H, Urine Protein NEGATIVE, Urine Glucose (UA) NEGATIVE, Urine Ketones NEGATIVE, Urine Occult Blood LARGE H, Urine Nitrite NEGATIVE, Urine Bilirubin NEGATIVE, Urine Urobilinogen 0.2 (NORMAL), Ur Leukocyte Esterase TRACE H, Urine RBC 6-10 H, Urine WBC 0-3, Ur Squamous Epith Cells RARE Squamous, Urine Bacteria Rare, Ur Microscopic Review INDICATED, Urine Culture Comments INDICATED 03/26/24 01:30: Sodium 138, Potassium 3.8, Chloride 103, Carbon Dioxide 31, Anion Gap 4.0 L, BUN 14, Creatinine 1.4 H, Estimated GFR (MDRD) 51 L, Glucose 170 H, Calcium 9.7, Total Bilirubin 0.8, AST 13, ALT 17, Alkaline Phosphatase 45, Total Protein 6.6, Albumin 4.5, Globulin 2.1, Albumin/Globulin Ratio 2.1, Lipase 11 03/26/24 01:30: WBC 7.3, RBC 4.96, Hgb 14.6, Hct 44.8, MCV 90.3, MCH 29.4, MCHC 32.6, RDW 12.4, Plt Count 256, MPV 10.4, Neut # (Auto) 5.5, Lymph # (Auto) 1.0 L, [place] # (Auto) 0.7, Eos # (Auto) 0.1, Baso # (Auto) 0.0, Absolute Nucleated RBC 0.00, Nucleated RBC % 0.0 - Diagnostic Imaging Results Diagnostic Imaging Results: positive: Read independently - Diagnosis Diagnosis: Right ureteral and kidney stones with ipsilateral hydronephrosis - Consultation Note Consultation Note: 63-year-old male with long history of kidney stones, most recent procedure was a shockwave on March 22, 2024 on the right side, now presenting with a 7 mm proximal ureteral stone obstructing his right kidney and pain - Plan Plan: Add on today for cystoscopy, right ureteroscopy, laser lithotripsy, stent placement. The risks, benefits, alternatives of the procedure were discussed with the patient. I will likely send a procedure specific risks of infection, bleeding, injury to adjacent structures, need for additional procedures, pain, stent colic, anesthesia concerns were discussed. He should remain n.p.o. until the procedure is done. I will try and clear out as many stones as possible. He does have a stones in the lower pole which I do not think will be accessible. He does have a large stone burden as well and so this may be a staged procedure Patient states understanding consents to the above plan. He is marked and consented and ready for the procedure I will likely send him home after the procedure NPO/IVF Pain control Boarding in ER until procedure
[2024-03-26] MEDS ORDERED: LIDOCAINE-PF 2% 10 ML AMP SUBQ ONE (09:12)
[2024-03-26] MEDS ORDERED: SEVOFLURANE 250 ML LIQUID INH ONE (09:12)
[2024-03-26] MEDS ORDERED: PROPOFOL 200 MG/20 ML VIAL IVP ONE (09:12)
[2024-03-26] MEDS ORDERED: DEXAMETHASONE 4 MG/ML VIAL ONE (09:13)
[2024-03-26] MEDS ORDERED: ONDANSETRON 4 MG/2 ML VIAL ONE (09:13)
[2024-03-26] MEDS ORDERED: fentaNYL 100 MCG/2 ML VIAL ONE (09:13)
[2024-03-26] MEDS ORDERED: MIDAZOLAM 2 MG/2 ML VIAL ONE (09:13)
[2024-03-26] MEDS: LACTATED RINGERS 1,000 ML IV ONE ×2 (10:34→12:32)
[2024-03-26] MEDS ORDERED: ceFAZolin 2 GM VIAL ONE (10:44)
[2024-03-26] MEDS ORDERED: LIDOCAINE 2% URO-JET 5 ML SYRINGE UR ONE (11:38)
[2024-03-26] MEDS ORDERED: KETOROLAC 30 MG/ML VIAL ONE (12:06)
[2024-03-26] MEDS: LIDOCAINE 2% URO-JET 5 ML SYRINGE UR ONE (12:18)
[2024-03-26] MEDS ORDERED: MORPHINE 2 MG/ML CARPUJECT IVP PRN (12:34)
[2024-03-26] MEDS ORDERED: ePHEDrine 50 MG/ML VIAL IVP PRN (12:34)
[2024-03-26] MEDS ORDERED: HYDROmorphone 0.5 MG/0.5 ML SYRINGE IVP PRN (12:34)
[2024-03-26] MEDS ORDERED: fentaNYL 100 MCG/2 ML VIAL IVP PRN (12:34)
[2024-03-26] MEDS ORDERED: NALOXONE 0.4 MG/ML VIAL IVP PRN (12:34)
[2024-03-26] MEDS ORDERED: ONDANSETRON 4 MG/2 ML VIAL IVP PRN ×2 (12:34→12:42)
[2024-03-26] MEDS ORDERED: METOCLOPRAMIDE 10 MG/2 ML VIAL IVP PRN (12:34)
[2024-03-26] MEDS ORDERED: ATROPINE ABBOJECT 1 MG/10 ML SYRINGE IVP PRN (12:34)
--- NOTE | 2024-03-26 12:36 | ANESTHESIA ---
Pre-Anesthesia VS, & Labs - Diagnosis Diagnosis Right ureteral and kidney stones with ipsilateral hydronephrosis R - Procedure cystoscopy, R ureter stent Vital Signs: Temp Pulse Resp BP Pulse Ox O2 Flow Rate 36.6 C 64 12 127/74 97 03/26/24 10:35 03/26/24 10:35 03/26/24 10:35 03/26/24 10:35 03/26/24 10:35 Height: 5 ft 9 in Weight (kg): 97.98 kg Body Mass Index: 31.8 BMI Classification: Obese - NPO >8 hours - Lab Results Current Lab Results: Laboratory Tests 03/26/24 01:30: Sodium 138, Potassium 3.8, Chloride 103, Carbon Dioxide 31, Anion Gap 4.0 L, BUN 14, Creatinine 1.4 H, Estimated GFR (MDRD) 51 L, Glucose 170 H, Calcium 9.7, Total Bilirubin 0.8, AST 13, ALT 17, Alkaline Phosphatase 45, Total Protein 6.6, Albumin 4.5, Globulin 2.1, Albumin/Globulin Ratio 2.1, Lipase 11 03/26/24 01:30: WBC 7.3, RBC 4.96, Hgb 14.6, Hct 44.8, MCV 90.3, MCH 29.4, MCHC 32.6, RDW 12.4, Plt Count 256, MPV 10.4, Neut # (Auto) 5.5, Lymph # (Auto) 1.0 L , [place] # (Auto) 0.7, Eos # (Auto) 0.1, Baso # (Auto) 0.0, Absolute Nucleated RBC 0.00, Nucleated RBC % 0.0 Fish Bones: 03/26/24 01:30 03/26/24 01:30 Home Medications and Allergies Allergies/Adverse Reactions: Allergies Allergy/AdvReac Type Severity Reaction Status Date / Time No Known Drug Allergies Allergy Verified 03/26/24 10:41 Anes History & Medical History - Anesthetic History Anesthesia Complications: reports: No previous complications Family history of Anesthesia Complications: Denies Family history of Malignant Hyperthermia: Denies - Medical History Cardiovascular: reports: None Pulmonary: reports: None Gastrointestinal: reports: None Urinary: reports: Kidney stones Musculoskeletal: reports: None Endocrine/Autoimmune: reports: None Skin: reports: None Smoking Status: Never smoker - Surgical History General: reports: Colonoscopy, Other Eyes Ears Nose Throat (EENT): reports: Cataracts Urologic: reports: Ureterolithotomy (stones) Exam General: Alert, Oriented x3, Cooperative Dental: WNL Mouth Openin Fingerbreadth Neck Mobility: Normal Mallampati classification: II Thyromental Distance: 4-6 cm Respiratory: Lungs clear Cardiovascular: Regular rate Plan Anesthesia Type: General Consent for Procedure(s) Verified and Reviewed: Yes Code Status: Attempt Resuscitation ASA classification: 2-Mild systemic disease Is this case an emergency?: No
[2024-03-26] MEDS ORDERED: HYDROcod/ACETAM 5/325 MG TABLET PO PRN (12:42)
--- NOTE | 2024-03-26 12:50 | Discharge Plan ---
Discharge Plan Problem Reviewed?: Yes Disposition: Home, Self Care Condition: Stable Prescriptions: Docusate Sodium 100Mg Capsule [Colace 100Mg Capsule] 100 mg PO DAILY #7 cap Tamsulosin [Flomax] 0.4 mg PO DAILY #30 cap Phenazopyridine HCl [Pyridium] 200 mg PO TID #9 tablet oxyCODONE [Roxicodone] 5 mg PO Q4H PRN #12 tablet PRN Reason: Pain Diet: Regular Activity Restrictions: No Restrictions Shower Restrictions: No Driving Restrictions: No Instruction Topics: Lithotripsy Shock Wave, Kidney Stones, Stents Ureteral Additional Instructions or Follow Up instructions: You were seen in the emergency department for passing kidney stones. Dr. Barr attempted to remove the stones but unfortunately your ureteral anatomy was too narrow at this point in time and so a ureteral stent was placed. This is an internal stent and it is temporary. It must be exchanged or removed within 3 months. The stent should passively dilate your system so that a subsequent ureteroscopic procedure will be successful to remove the stones Dr. Barr will contact you to discuss further No Smoking: If you smoke, Please STOP! Call for help. Follow-up with: Shubham Barr MD [Provider Admit Priv/Credential] -
--- NOTE | 2024-03-26 12:52 | OPERATIVE REPORT ---
Operative Report - General Procedure Date: 03/26/24 Planned Procedure: Cystoscopy, right ureteroscopy, laser lithotripsy, stent Pre-Op Diagnosis: Right ureteral and kidney stones Procedure Performed: Cystoscopy, attempted right ureteroscopy, ureteral dilation, ureteral stent Post Op Diagnosis: Right ureteral and kidney stones, ureteral narrowing - Procedure Note Primary Surgeon: Momo Anesthesia Provider: CONNIE Joay Anesthesia Technique: General LMA Pathology: none Estimated Blood Loss (mL): 2 Indications: Right ureteral and kidney stones after shockwave lithotripsy on March 22, 2024 causing pain Findings: Mid ureteral narrowing which could not be dilated past 10 [place] easily Ureteral stent placed Complications: Unable to gain access to the proximal ureter, unable to perform ureteroscopic retrieval of stones. Stent placed - Other Other Information/Narrative: After informed consent was obtained the patient brought to the OR and laid in the supine position. The patient was then anesthetized per anesthesia protocols and prepped and draped in usual sterile fashion in the dorsolithotomy position. A formal timeout was performed confirming the patient, procedure and laterality. Blueprint Machine Operator imaging showed radiopacities in the expected location of the proximal ureter along with a cluster of stones in the upper pole of the kidney consistent with a prior large stone that was broken up into smaller pieces. A 22 [place] cystoscope was then advanced easily into the urinary bladder. Bladder was inspected and full and there were no masses, lesions or other concerns. Attention was paid to the right ureteral orifice and a sensor wire was placed through this up into the kidney and passed the proximal ureteral stone. We then dilated the distal ureter with an 8/10 [place] dilator. A Super Stiff wire was placed as a second wire and again dilation was attempted with a 8/10 dilator. We then attempted to dilate using the 12 [place] portion of a 12/14 [place] ureteral access sheath but we could not dilate beyond the mid ureter. We then attempted to just place the flexible ureteroscope over a wire into the proximal ureter but again we could not gain proximal access. Under direct visualization we could see there was a narrowing of his mid ureter. This did not appear malignant. At this point in time we elected to place a ureteral stent to hopefully passively dilate his ureter for a subsequent ureteroscopy in the future. A 6 [place] 26 cm stent was placed with good curling noted in the kidney and good curling noted in the bladder. The bladder was emptied and Uro- Jet was placed. This concluded procedure and the patient tolerated procedure well. He will follow-up for subsequent ureteroscopic procedure in several weeks. All counts were correct
[2024-03-26] MEDS ORDERED: LACTATED RINGERS 1,000 ML IV SCH (13:00)
[2024-03-26 13:48] VITALS: BP 130/79; O2SAT 94
--- NOTE | 2024-03-26 15:18 | ANESTHESIA POST OP EVALUATION ---
Anesthesia Post Eval - Post Anesthesia Eval Vitals: Last Vital Signs Temp 36.4 C L 03/26/24 13:35 Pulse 66 03/26/24 13:35 Resp 14 03/26/24 13:35 BP 130/79 03/26/24 13:35 Pulse Ox 94 03/26/24 13:35 O2 Flow Rate CV Function Including HR & BP: Stable Pain Control: Satisfactory Nausea & Vomiting: Negative Mental Status: Baseline Respiratory Status: Airway Patent Hydration Status: Satisfactory Anesthesia Complications: None
--- NOTE | 2024-03-26 16:25 | XRAY Report ---
PROCEDURE: OR C-Arm Procedure INDICATIONS: URETERAL STENT PLACEMENT FLUORO TIME: 000.6 TECHNIQUE: 6 intraoperative fluoroscopic images of right abdomen were obtained. COMPARISON: CT of abdomen and pelvis dated 03/26/2024 and 12/05/2023. FINDINGS: Intraoperative fluoroscopic images shows placement of a right-sided ureteral stent. IMPRESSION: Fluoroscopy guidance was provided intraoperatively for right-sided ureteral stent placement by [facility] physician. Reviewed by: Tian Girard MD on 03/26/2024 4:23 PM PDT Approved by: Tian Girard MD on 03/26/2024 4:23 PM PDT Station ID: [id number]
== END 2024-03-26 09:18 | disposition home or self-care (01) ==
LOC: ED 00:50 → SDS 09:17
PROVIDERS: ATTEND Urology
DX: N13.2 Hydronephrosis with renal and ureteral calculous obstruction (principal); Z87.442 Personal history of urinary calculi; E66.9 Obesity, unspecified; Z68.31 Body mass index [BMI] 31.0-31.9, adult
CPT/HCPCS: 36415; 52332; 74176; 80053; 81001; 83690; 85025; 87086; 96374; 96375; 99285; C1758; C2617; J1170; J3490; J7120; 81003